=== PATIENT | female | born 1980 | race Two or more races ===

== ENCOUNTER 2021-04-10 15:15 | Inpatient (IN) | payer OTHER ==
[~2021-04-10] VITALS: Ht 165.1 cm; Wt 110.2 kg
[2021-04-23] MEDS ORDERED: PRENATAL CAPLE1 EAC1 PO (12:14)
[2021-04-25] MEDS ORDERED: PRENATAL VITAM1 EAC7 (13:27)
[2021-04-25] MEDS ORDERED: FOLIC ACID1 MG (13:27)
[2021-04-27] MEDS ORDERED: OXYC1TAB9 PO (10:04)
[2021-04-27] MEDS ORDERED: KETO10TA2 PO (10:04)
== END 2021-04-27 15:40 | disposition home or self-care (01) | DRG 788 ==
LOC: LDR 04-23 10:22 → O/R 04-24 13:43 → OB/GYN 04-24 15:51 → SURG-SUITE 04-24 16:43 → OB/GYN 04-28 15:15
PROVIDERS: ADMIT Obstetrics & Gynecology; ATTEND Obstetrics & Gynecology
PROC: 3E0P7VZ Introduction of Hormone into Female Reproductive, Via Natural or Artificial Opening (ICD-10-PCS; 2021-04-23)
PROC: 4A1HXFZ Monitoring of Products of Conception, Cardiac Rhythm, External Approach (ICD-10-PCS; 2021-04-23)
PROC: 0UB00ZZ Excision of Right Ovary, Open Approach (ICD-10-PCS; 2021-04-24)
PROC: 3E033VJ Introduction of Other Hormone into Peripheral Vein, Percutaneous Approach (ICD-10-PCS; 2021-04-24)
PROC: 10D00Z1 Extraction of Products of Conception, Low, Open Approach (ICD-10-PCS; principal; 2021-04-24 15:15)
DX: O61.0 Failed medical induction of labor (principal); O62.0 Primary inadequate contractions; O34.83 Maternal care for other abnormalities of pelvic organs, third trimester; N83.201 Unspecified ovarian cyst, right side; O13.4 Gestational [pregnancy-induced] hypertension without significant proteinuria, complicating childbirth; Z37.0 Single live birth; Z3A.39 39 weeks gestation of pregnancy